=== PATIENT | female | born 1975 | race Caucasian/White ===

== ENCOUNTER 2021-07-22 13:44 | Inpatient (IN) | payer OTHER ==
[2021-07-22 17:04] VITALS: BMI 21.1
[2021-07-22] MEDS ORDERED: BISMUTH SUBSALICYLATE 524 MG/30 ML PO PRN (17:09)
[2021-07-22] MEDS ORDERED: ACETAMINOPHEN 325 MG TABLET (FP) PO PRN ×2 (17:09)
[2021-07-22] MEDS ORDERED: diazePAM 5 MG TABLET PO PRN (17:09)
[2021-07-22] MEDS ORDERED: MAG HYDROX/AL HYDROX/SIMETH 30 ML UNIT-DOSE CUP PO PRN (17:09)
[2021-07-22] MEDS ORDERED: MAGNESIUM HYDROX 2400MG/30ML ORAL SUSPENSION 30 ML CUP PO PRN (17:09)
[2021-07-22] MEDS ORDERED: IBUPROFEN 400 MG TABLET (FP) PO PRN (17:09)
[2021-07-22] MEDS ORDERED: MAGNESIUM CITRATE 300 ML BOTTLE PO PRN (17:09)
[2021-07-22] MEDS ORDERED: ONDANSETRON *ODT* 4 MG TABLET SL PRN (17:09)
[2021-07-22] MEDS ORDERED: MENTHOL/PHENOL 1 EACH UD MM PRN (17:09)
[2021-07-22] MEDS: METHOCARBAMOL 500 MG TABLET PO PRN (18:45)
[2021-07-22] MEDS: hydrOXYzine PAMOATE 25 MG CAPSULE (FP) PO SCH ×2 (18:45→22:21)
[2021-07-22] MEDS: diazePAM 5 MG TABLET PO SCH ×2 (18:46→22:22)
[2021-07-22] MEDS: NICOTINE 21 MG/24 HOURS TOPICAL PATCH TD SCH (18:54)
[2021-07-22] MEDS ORDERED: MELATONIN 5 MG TABLETS PO SCH (22:00)
[2021-07-22] MEDS: THIAMINE HCL 100 MG TABLET (FP) PO SCH (22:21)
[2021-07-23] MEDS: diazePAM 5 MG TABLET PO SCH ×4 (06:27→22:21)
[2021-07-23] MEDS: hydrOXYzine PAMOATE 25 MG CAPSULE (FP) PO SCH ×2 (06:28→11:09)
[2021-07-23] MEDS: METHOCARBAMOL 500 MG TABLET PO PRN (06:28)
[2021-07-23 08:10] LABS: HEMATOCRIT 31.4 % (32.4-45.2); HEMOGLOBIN 10.7 GM/dL (10.7-15.3); MCH 30.2 pg (25.7-33.7); MCHC 34.2 g/dl (32.0-36.0); MEAN CELL VOLUME 88.3 fl (80-96); MEAN PLT VOLUME 7.8 fl (7.5-11.1); PLATELET COUNT 286 10^3/uL (134-434); RBC 3.55 M/mm3 (3.60-5.2); RDW 12.8 % (11.6-15.6); WHITE BLOOD COUNT 6.9 K/mm3 (4.0-10.0)
[2021-07-23] MEDS ORDERED: CARISOPRODOL 350 MG PO PRN (08:17)
[2021-07-23 08:27] LABS: ALBUMIN 2.8 g/dl (3.4-5.0); BLOOD UREA NITROGEN 10.8 mg/dL (7-18); CALCIUM 8.7 mg/dL (8.5-10.1)
[2021-07-23 08:31] LABS: CREATININE 0.7 mg/dL (0.55-1.3)
[2021-07-23 08:32] LABS: TOT PROT 6.3 g/dl (6.4-8.2)
[2021-07-23 08:33] LABS: BILIRUBIN,TOTAL 0.6 mg/dL (0.2-1)
[2021-07-23] MEDS: LEVOTHYROXINE NA 112 MCG TABLET (FP) PO SCH (09:25)
[2021-07-23] MEDS: NICOTINE 21 MG/24 HOURS TOPICAL PATCH TD SCH (11:09)
[2021-07-23] MEDS ORDERED: FLU VACC QS2021-22(6MOS UP)/PF 60 MCG/0.5 ML SYRINGE IM ONE (12:00)
[2021-07-23] MEDS ORDERED: POTASSIUM CHLORIDE TABS 20 MEQ TABLET.ER (FP) PO ONE (12:45)
[2021-07-23] MEDS ORDERED: cloNIDine HCL 0.1 MG TABLET PO PRN (13:05)
[2021-07-23] MEDS ORDERED: methaDONE HCL 10 MG TABLET (FOR DETOX USE ONLY) PO ONE (13:15)
[2021-07-23] MEDS ORDERED: MASKS NR ONE (14:09)
[2021-07-23] MEDS: NICOTINE 10 MG CARTRIDGE (INHALER) IH PRN (16:31)
[2021-07-23] MEDS ORDERED: MIRTAZAPINE 15 MG TABLET (FP) ONE (21:17)
[2021-07-23] MEDS: THIAMINE HCL 100 MG TABLET (FP) PO SCH (22:20)
[2021-07-23] MEDS: MIRTAZAPINE 30 MG TABLET PO SCH (22:20)
[2021-07-24] MEDS: diazePAM 5 MG TABLET PO SCH ×3 (06:28→22:15)
[2021-07-24] MEDS: LEVOTHYROXINE NA 112 MCG TABLET (FP) PO SCH (06:28)
[2021-07-24] MEDS ORDERED: methaDONE HCL 10 MG TABLET (FOR DETOX USE ONLY) ONE (08:56)
[2021-07-24] MEDS: NICOTINE 21 MG/24 HOURS TOPICAL PATCH TD SCH (10:23)
[2021-07-24] MEDS: SERTRALINE HCL 50 MG TABLET (FP) PO SCH (10:24)
[2021-07-24] MEDS: NICOTINE 10 MG CARTRIDGE (INHALER) IH PRN (16:05)
[2021-07-24] MEDS ORDERED: MIRTAZAPINE 15 MG TABLET (FP) ONE (21:46)
[2021-07-24] MEDS: THIAMINE HCL 100 MG TABLET (FP) PO SCH (22:17)
[2021-07-24] MEDS: MIRTAZAPINE 30 MG TABLET PO SCH (22:18)
[2021-07-25] MEDS: diazePAM 5 MG TABLET PO SCH ×2 (06:17→17:43)
[2021-07-25] MEDS: LEVOTHYROXINE NA 112 MCG TABLET (FP) PO SCH (06:18)
[2021-07-25] MEDS ORDERED: methaDONE HCL 10 MG TABLET (FOR DETOX USE ONLY) PO ONE (10:00)
[2021-07-25] MEDS: NICOTINE 21 MG/24 HOURS TOPICAL PATCH TD SCH (10:20)
[2021-07-25] MEDS: hydrOXYzine PAMOATE 25 MG CAPSULE (FP) PO PRN (10:21)
[2021-07-25] MEDS: METHOCARBAMOL 500 MG TABLET PO PRN (10:21)
[2021-07-25] MEDS: SERTRALINE HCL 50 MG TABLET (FP) PO SCH (10:21)
[2021-07-25] MEDS: NICOTINE 10 MG CARTRIDGE (INHALER) IH PRN ×2 (10:58→22:22)
[2021-07-25] MEDS ORDERED: MIRTAZAPINE 15 MG TABLET (FP) ONE (21:07)
[2021-07-25] MEDS: THIAMINE HCL 100 MG TABLET (FP) PO SCH (22:22)
[2021-07-25] MEDS: MIRTAZAPINE 30 MG TABLET PO SCH (22:22)
[2021-07-26] MEDS ORDERED: diazePAM 5 MG TABLET PO ONE (06:00)
[2021-07-26] MEDS: LEVOTHYROXINE NA 112 MCG TABLET (FP) PO SCH (06:00)
[2021-07-26] MEDS ORDERED: methaDONE HCL 10 MG TABLET (FOR DETOX USE ONLY) ONE (09:09)
[2021-07-26] MEDS: SERTRALINE HCL 50 MG TABLET (FP) PO SCH (10:36)
[2021-07-26] MEDS: NICOTINE 21 MG/24 HOURS TOPICAL PATCH TD SCH (10:38)
[2021-07-26] MEDS ORDERED: MIRTAZAPINE 15 MG TABLET (FP) ONE (21:01)
[2021-07-26] MEDS: NICOTINE 10 MG CARTRIDGE (INHALER) IH PRN (22:16)
[2021-07-26] MEDS: THIAMINE HCL 100 MG TABLET (FP) PO SCH (22:16)
[2021-07-26] MEDS: MIRTAZAPINE 30 MG TABLET PO SCH (22:16)
[2021-07-27] MEDS: LEVOTHYROXINE NA 112 MCG TABLET (FP) PO SCH (06:23)
[2021-07-27] MEDS ORDERED: methaDONE HCL 10 MG TABLET (FOR DETOX USE ONLY) PO ONE (10:00)
[2021-07-27] MEDS: SERTRALINE HCL 50 MG TABLET (FP) PO SCH (10:29)
[2021-07-27] MEDS: NICOTINE 21 MG/24 HOURS TOPICAL PATCH TD SCH (10:30)
[2021-07-27] MEDS: hydrOXYzine PAMOATE 25 MG CAPSULE (FP) PO PRN ×2 (10:31→22:23)
[2021-07-27] MEDS: diazePAM 5 MG TABLET PO PRN ×2 (12:42→22:23)
[2021-07-27] MEDS ORDERED: MIRTAZAPINE 15 MG TABLET (FP) ONE (21:38)
[2021-07-27] MEDS: MIRTAZAPINE 30 MG TABLET PO SCH (22:21)
[2021-07-27] MEDS: THIAMINE HCL 100 MG TABLET (FP) PO SCH (22:23)
[2021-07-28] MEDS: LEVOTHYROXINE NA 112 MCG TABLET (FP) PO SCH (07:24)
[2021-07-28] MEDS: NICOTINE 10 MG CARTRIDGE (INHALER) IH PRN (10:31)
[2021-07-28] MEDS: NICOTINE 21 MG/24 HOURS TOPICAL PATCH TD SCH (10:32)
[2021-07-28] MEDS: SERTRALINE HCL 50 MG TABLET (FP) PO SCH (10:32)
[2021-07-28] MEDS: diazePAM 5 MG TABLET PO PRN (10:33)
[2021-07-28 13:19] VITALS: BP 107/67; PULSE 59; TEMP 96.8
== END 2021-07-28 15:11 | disposition other institution (70) | DRG 773 ==
LOC: YASAS 13:44 → Y3N 17:59
PROVIDERS: ADMIT Allergy & Immunology; ATTEND Allergy & Immunology
PROC: HZ2ZZZZ Detoxification Services for Substance Abuse Treatment (ICD-10-PCS; principal; 2021-07-22)
DX: F11.23 Opioid dependence with withdrawal (principal); F13.20 Sedative, hypnotic or anxiolytic dependence, uncomplicated; F17.210 Nicotine dependence, cigarettes, uncomplicated; F41.1 Generalized anxiety disorder; F32.9 Major depressive disorder, single episode, unspecified; F60.3 Borderline personality disorder; E03.9 Hypothyroidism, unspecified; G47.00 Insomnia, unspecified; M32.9 Systemic lupus erythematosus, unspecified; Z91.410 Personal history of adult physical and sexual abuse; Z56.0 Unemployment, unspecified; Z59.02 Unsheltered homelessness; Z88.2 Allergy status to sulfonamides
CPT/HCPCS: 36415; 80053; 81025; 84132; 85027; 86780; C9803; U0003; U0005

== ENCOUNTER 2021-07-28 15:31 | Inpatient (IN) | payer OTHER ==
[2021-07-28] MEDS ORDERED: MAGNESIUM CITRATE 300 ML BOTTLE PO PRN (16:02)
[2021-07-28] MEDS ORDERED: P-EPHED 60MG/TRIPROLIDI 2.5MG TABLET PO PRN (16:02)
[2021-07-28] MEDS ORDERED: MAGNESIUM HYDROX 2400MG/30ML ORAL SUSPENSION 30 ML CUP PO PRN (16:02)
[2021-07-28] MEDS ORDERED: MENTHOL/PHENOL 1 EACH UD MM PRN (16:02)
[2021-07-28] MEDS ORDERED: guaiFENesin 200 MG/10 ML 10 ML UNIT-DOSE CUPS PO PRN (16:02)
[2021-07-28] MEDS ORDERED: ACETAMINOPHEN 325 MG TABLET (FP) PO PRN (16:02)
[2021-07-28] MEDS ORDERED: LOPERAMIDE HCL 2 MG CAPSULE PO PRN (16:02)
[2021-07-28] MEDS ORDERED: IBUPROFEN 400 MG TABLET (FP) PO PRN (16:02)
[2021-07-28] MEDS ORDERED: MAG HYDROX/AL HYDROX/SIMETH 30 ML UNIT-DOSE CUP PO PRN (16:02)
[2021-07-28] MEDS: hydrOXYzine PAMOATE 25 MG CAPSULE (FP) PO PRN ×2 (18:05→22:55)
[2021-07-28] MEDS: THIAMINE HCL 100 MG TABLET (FP) PO SCH (21:04)
[2021-07-28] MEDS: MELATONIN 5 MG TABLETS PO SCH (21:04)
[2021-07-29] MEDS ORDERED: PT OWN MED DRAWER 7, Y5N ONE (03:24)
[2021-07-29] MEDS: LEVOTHYROXINE NA 112 MCG TABLET (FP) PO SCH (07:03)
[2021-07-29] MEDS: NICOTINE 7 MG/24 HOURS TOPICAL PATCH TD SCH (09:38)
[2021-07-29] MEDS: PRENATAL VITAMINS W/ FOLIC ACID TABLET (FP) PO SCH (09:38)
[2021-07-29] MEDS: hydrOXYzine PAMOATE 25 MG CAPSULE (FP) PO PRN ×3 (09:38→18:58)
[2021-07-29] MEDS: SERTRALINE HCL 50 MG TABLET (FP) PO SCH (13:18)
[2021-07-29] MEDS: ONDANSETRON *ODT* 4 MG TABLET SL PRN (18:59)
[2021-07-29] MEDS ORDERED: cloNIDine HCL 0.1 MG TABLET PO PRN (19:20)
[2021-07-29] MEDS ORDERED: BUPRENORPHINE/NALOXONE 4 MG/1 MG FILM PACKET SL ONE (19:22)
[2021-07-29] MEDS: MIRTAZAPINE 30 MG TABLET PO SCH (22:00)
[2021-07-29] MEDS: THIAMINE HCL 100 MG TABLET (FP) PO SCH (22:00)
[2021-07-29] MEDS: MELATONIN 5 MG TABLETS PO SCH (22:00)
[2021-07-30] MEDS: LEVOTHYROXINE NA 112 MCG TABLET (FP) PO SCH (06:29)
[2021-07-30] MEDS: ONDANSETRON *ODT* 4 MG TABLET SL PRN (09:56)
[2021-07-30] MEDS ORDERED: BUPRENORPHINE/NALOXONE 2 MG/0.5 MG FILM PACKET SL SCH (10:15)
[2021-07-30] MEDS: NICOTINE 7 MG/24 HOURS TOPICAL PATCH TD SCH (10:44)
[2021-07-30] MEDS: PRENATAL VITAMINS W/ FOLIC ACID TABLET (FP) PO SCH (10:44)
[2021-07-30] MEDS: SERTRALINE HCL 50 MG TABLET (FP) PO SCH (10:45)
[2021-07-30] MEDS: hydrOXYzine PAMOATE 25 MG CAPSULE (FP) PO PRN ×2 (10:45→21:09)
[2021-07-30] MEDS: NICOTINE 10 MG CARTRIDGE (INHALER) IH PRN (13:43)
[2021-07-30] MEDS ORDERED: BUPRENORPHINE/NALOXONE 2 MG/0.5 MG FILM PACKET SL ONE (18:00)
[2021-07-30] MEDS: MIRTAZAPINE 30 MG TABLET PO SCH (21:08)
[2021-07-30] MEDS: THIAMINE HCL 100 MG TABLET (FP) PO SCH (21:08)
[2021-07-30] MEDS: MELATONIN 5 MG TABLETS PO SCH (21:08)
[2021-07-31] MEDS: LEVOTHYROXINE NA 112 MCG TABLET (FP) PO SCH (07:48)
[2021-07-31] MEDS: PRENATAL VITAMINS W/ FOLIC ACID TABLET (FP) PO SCH (10:39)
[2021-07-31] MEDS: BUPRENORPHINE/NALOXONE 8 MG/2 MG FILM PACKET SL SCH ×2 (10:39→17:27)
[2021-07-31] MEDS: NICOTINE 7 MG/24 HOURS TOPICAL PATCH TD SCH (10:39)
[2021-07-31] MEDS: SERTRALINE HCL 50 MG TABLET (FP) PO SCH (10:40)
[2021-07-31] MEDS: hydrOXYzine PAMOATE 25 MG CAPSULE (FP) PO PRN ×2 (10:40→21:30)
[2021-07-31] MEDS: ONDANSETRON *ODT* 4 MG TABLET SL PRN (10:41)
[2021-07-31] MEDS: MELATONIN 5 MG TABLETS PO SCH (21:30)
[2021-07-31] MEDS: MIRTAZAPINE 30 MG TABLET PO SCH (21:30)
[2021-07-31] MEDS: NICOTINE 10 MG CARTRIDGE (INHALER) IH PRN (21:31)
[2021-07-31] MEDS: THIAMINE HCL 100 MG TABLET (FP) PO SCH (21:32)
[2021-08-01] MEDS: LEVOTHYROXINE NA 112 MCG TABLET (FP) PO SCH (07:11)
[2021-08-01] MEDS: PRENATAL VITAMINS W/ FOLIC ACID TABLET (FP) PO SCH (10:23)
[2021-08-01] MEDS: NICOTINE 7 MG/24 HOURS TOPICAL PATCH TD SCH (10:24)
[2021-08-01] MEDS: BUPRENORPHINE/NALOXONE 8 MG/2 MG FILM PACKET SL SCH ×2 (10:24→19:17)
[2021-08-01] MEDS: hydrOXYzine PAMOATE 25 MG CAPSULE (FP) PO PRN ×2 (10:25→22:02)
[2021-08-01] MEDS: SERTRALINE HCL 50 MG TABLET (FP) PO SCH (10:25)
[2021-08-01] MEDS: MELATONIN 5 MG TABLETS PO SCH (22:01)
[2021-08-01] MEDS: MIRTAZAPINE 30 MG TABLET PO SCH (22:01)
[2021-08-01] MEDS: THIAMINE HCL 100 MG TABLET (FP) PO SCH (22:01)
[2021-08-01] MEDS: NICOTINE 10 MG CARTRIDGE (INHALER) IH PRN (22:02)
[2021-08-02] MEDS: LEVOTHYROXINE NA 112 MCG TABLET (FP) PO SCH (07:48)
[2021-08-02] MEDS: PRENATAL VITAMINS W/ FOLIC ACID TABLET (FP) PO SCH (10:37)
[2021-08-02] MEDS: NICOTINE 7 MG/24 HOURS TOPICAL PATCH TD SCH (10:37)
[2021-08-02] MEDS: SERTRALINE HCL 50 MG TABLET (FP) PO SCH (10:37)
[2021-08-02] MEDS: BUPRENORPHINE/NALOXONE 8 MG/2 MG FILM PACKET SL SCH ×2 (10:37→18:20)
[2021-08-02] MEDS: hydrOXYzine PAMOATE 25 MG CAPSULE (FP) PO PRN ×2 (10:38→22:08)
[2021-08-02] MEDS: NICOTINE 10 MG CARTRIDGE (INHALER) IH PRN (22:07)
[2021-08-02] MEDS: MELATONIN 5 MG TABLETS PO SCH (22:08)
[2021-08-02] MEDS: MIRTAZAPINE 30 MG TABLET PO SCH (22:08)
[2021-08-02] MEDS: THIAMINE HCL 100 MG TABLET (FP) PO SCH (22:08)
[2021-08-03] MEDS: LEVOTHYROXINE NA 112 MCG TABLET (FP) PO SCH (06:52)
[2021-08-03] MEDS: SERTRALINE HCL 50 MG TABLET (FP) PO SCH (10:50)
[2021-08-03] MEDS: BUPRENORPHINE/NALOXONE 8 MG/2 MG FILM PACKET SL SCH ×2 (10:50→17:59)
[2021-08-03] MEDS: hydrOXYzine PAMOATE 25 MG CAPSULE (FP) PO PRN ×2 (10:50→21:17)
[2021-08-03] MEDS: PRENATAL VITAMINS W/ FOLIC ACID TABLET (FP) PO SCH (10:50)
[2021-08-03] MEDS: NICOTINE 7 MG/24 HOURS TOPICAL PATCH TD SCH (10:50)
[2021-08-03] MEDS: THIAMINE HCL 100 MG TABLET (FP) PO SCH (21:17)
[2021-08-03] MEDS: MELATONIN 5 MG TABLETS PO SCH (21:17)
[2021-08-03] MEDS: MIRTAZAPINE 30 MG TABLET PO SCH (21:17)
[2021-08-04] MEDS ORDERED: PT OWN MED DRAWER 7, Y5N ONE (02:50)
[2021-08-04] MEDS: PRENATAL VITAMINS W/ FOLIC ACID TABLET (FP) PO SCH (10:46)
[2021-08-04] MEDS: NICOTINE 7 MG/24 HOURS TOPICAL PATCH TD SCH (10:46)
[2021-08-04] MEDS: SERTRALINE HCL 50 MG TABLET (FP) PO SCH (10:47)
[2021-08-04] MEDS: LEVOTHYROXINE NA 112 MCG TABLET (FP) PO SCH (10:47)
[2021-08-04] MEDS: BUPRENORPHINE/NALOXONE 8 MG/2 MG FILM PACKET SL SCH ×2 (10:47→17:40)
[2021-08-04] MEDS: hydrOXYzine PAMOATE 25 MG CAPSULE (FP) PO PRN ×2 (10:48→21:13)
[2021-08-04] MEDS: MELATONIN 5 MG TABLETS PO SCH (21:12)
[2021-08-04] MEDS: THIAMINE HCL 100 MG TABLET (FP) PO SCH (21:12)
[2021-08-04] MEDS: MIRTAZAPINE 30 MG TABLET PO SCH (21:12)
[2021-08-04] MEDS: NICOTINE 10 MG CARTRIDGE (INHALER) IH PRN (21:13)
[2021-08-05] MEDS: LEVOTHYROXINE NA 112 MCG TABLET (FP) PO SCH (06:43)
[2021-08-05] MEDS: hydrOXYzine PAMOATE 25 MG CAPSULE (FP) PO PRN ×3 (09:37→21:32)
[2021-08-05] MEDS: SERTRALINE HCL 50 MG TABLET (FP) PO SCH (09:37)
[2021-08-05] MEDS: PRENATAL VITAMINS W/ FOLIC ACID TABLET (FP) PO SCH (09:38)
[2021-08-05] MEDS: NICOTINE 7 MG/24 HOURS TOPICAL PATCH TD SCH (09:38)
[2021-08-05] MEDS: BUPRENORPHINE/NALOXONE 8 MG/2 MG FILM PACKET SL SCH ×2 (10:58→18:06)
[2021-08-05] MEDS: MELATONIN 5 MG TABLETS PO SCH (21:32)
[2021-08-05] MEDS: MIRTAZAPINE 30 MG TABLET PO SCH (21:32)
[2021-08-05] MEDS: THIAMINE HCL 100 MG TABLET (FP) PO SCH (21:32)
[2021-08-06] MEDS ORDERED: PT OWN MED DRAWER 7, Y5N ONE (03:16)
[2021-08-06] MEDS: LEVOTHYROXINE NA 112 MCG TABLET (FP) PO SCH (06:47)
[2021-08-06] MEDS: NICOTINE 7 MG/24 HOURS TOPICAL PATCH TD SCH (10:42)
[2021-08-06] MEDS: hydrOXYzine PAMOATE 25 MG CAPSULE (FP) PO PRN ×2 (10:42→21:14)
[2021-08-06] MEDS: PRENATAL VITAMINS W/ FOLIC ACID TABLET (FP) PO SCH (10:42)
[2021-08-06] MEDS: BUPRENORPHINE/NALOXONE 8 MG/2 MG FILM PACKET SL SCH ×2 (10:42→18:05)
[2021-08-06] MEDS: SERTRALINE HCL 50 MG TABLET (FP) PO SCH (10:42)
[2021-08-06] MEDS: NICOTINE 10 MG CARTRIDGE (INHALER) IH PRN (21:14)
[2021-08-06] MEDS: THIAMINE HCL 100 MG TABLET (FP) PO SCH (21:14)
[2021-08-06] MEDS: MELATONIN 5 MG TABLETS PO SCH (21:14)
[2021-08-06] MEDS: MIRTAZAPINE 30 MG TABLET PO SCH (21:14)
[2021-08-07] MEDS: LEVOTHYROXINE NA 112 MCG TABLET (FP) PO SCH (06:43)
[2021-08-07] MEDS: BUPRENORPHINE/NALOXONE 8 MG/2 MG FILM PACKET SL SCH ×2 (10:23→18:13)
[2021-08-07] MEDS: SERTRALINE HCL 50 MG TABLET (FP) PO SCH (10:23)
[2021-08-07] MEDS: NICOTINE 7 MG/24 HOURS TOPICAL PATCH TD SCH (10:23)
[2021-08-07] MEDS: PRENATAL VITAMINS W/ FOLIC ACID TABLET (FP) PO SCH (10:23)
[2021-08-07] MEDS: hydrOXYzine PAMOATE 25 MG CAPSULE (FP) PO PRN ×2 (10:24→21:20)
[2021-08-07] MEDS: MIRTAZAPINE 30 MG TABLET PO SCH (21:20)
[2021-08-07] MEDS: MELATONIN 5 MG TABLETS PO SCH (21:20)
[2021-08-07] MEDS: THIAMINE HCL 100 MG TABLET (FP) PO SCH (21:20)
[2021-08-08] MEDS: LEVOTHYROXINE NA 112 MCG TABLET (FP) PO SCH (07:05)
[2021-08-08] MEDS: NICOTINE 7 MG/24 HOURS TOPICAL PATCH TD SCH (10:24)
[2021-08-08] MEDS: SERTRALINE HCL 50 MG TABLET (FP) PO SCH (10:24)
[2021-08-08] MEDS: BUPRENORPHINE/NALOXONE 8 MG/2 MG FILM PACKET SL SCH ×2 (10:24→17:58)
[2021-08-08] MEDS: hydrOXYzine PAMOATE 25 MG CAPSULE (FP) PO PRN ×2 (10:24→21:58)
[2021-08-08] MEDS: PRENATAL VITAMINS W/ FOLIC ACID TABLET (FP) PO SCH (10:24)
[2021-08-08] MEDS: MIRTAZAPINE 30 MG TABLET PO SCH (21:58)
[2021-08-08] MEDS: MELATONIN 5 MG TABLETS PO SCH (21:59)
[2021-08-08] MEDS: THIAMINE HCL 100 MG TABLET (FP) PO SCH (21:59)
[2021-08-09] MEDS: LEVOTHYROXINE NA 112 MCG TABLET (FP) PO SCH ×2 (06:46→10:28)
[2021-08-09] MEDS: SERTRALINE HCL 50 MG TABLET (FP) PO SCH (10:28)
[2021-08-09] MEDS: PRENATAL VITAMINS W/ FOLIC ACID TABLET (FP) PO SCH (10:28)
[2021-08-09] MEDS: hydrOXYzine PAMOATE 25 MG CAPSULE (FP) PO PRN ×2 (10:28→21:53)
[2021-08-09] MEDS: BUPRENORPHINE/NALOXONE 8 MG/2 MG FILM PACKET SL SCH ×2 (10:29→18:16)
[2021-08-09] MEDS: NICOTINE 7 MG/24 HOURS TOPICAL PATCH TD SCH (10:30)
[2021-08-09] MEDS: MELATONIN 5 MG TABLETS PO SCH (21:53)
[2021-08-09] MEDS: THIAMINE HCL 100 MG TABLET (FP) PO SCH (21:53)
[2021-08-09] MEDS: MIRTAZAPINE 30 MG TABLET PO SCH (21:53)
[2021-08-09] MEDS: NICOTINE 10 MG CARTRIDGE (INHALER) IH PRN (21:54)
[2021-08-10] MEDS: LEVOTHYROXINE NA 112 MCG TABLET (FP) PO SCH ×2 (06:38→10:34)
[2021-08-10] MEDS: BUPRENORPHINE/NALOXONE 8 MG/2 MG FILM PACKET SL SCH ×2 (10:34→18:08)
[2021-08-10] MEDS: SERTRALINE HCL 50 MG TABLET (FP) PO SCH (10:34)
[2021-08-10] MEDS: PRENATAL VITAMINS W/ FOLIC ACID TABLET (FP) PO SCH (10:34)
[2021-08-10] MEDS: hydrOXYzine PAMOATE 25 MG CAPSULE (FP) PO PRN ×2 (10:34→21:18)
[2021-08-10] MEDS: NICOTINE 7 MG/24 HOURS TOPICAL PATCH TD SCH (10:35)
[2021-08-10] MEDS: MELATONIN 5 MG TABLETS PO SCH (21:18)
[2021-08-10] MEDS: THIAMINE HCL 100 MG TABLET (FP) PO SCH (21:18)
[2021-08-10] MEDS: MIRTAZAPINE 30 MG TABLET PO SCH (21:18)
[2021-08-11] MEDS ORDERED: PT OWN MED DRAWER 7, Y5N ONE ×3 (03:24→06:51)
[2021-08-11] MEDS: hydrOXYzine PAMOATE 25 MG CAPSULE (FP) PO PRN ×2 (06:52→21:02)
[2021-08-11] MEDS: LEVOTHYROXINE NA 112 MCG TABLET (FP) PO SCH (06:53)
[2021-08-11 07:13] VITALS: TEMP 99.1
[2021-08-11] MEDS: PRENATAL VITAMINS W/ FOLIC ACID TABLET (FP) PO SCH (10:02)
[2021-08-11] MEDS: NICOTINE 7 MG/24 HOURS TOPICAL PATCH TD SCH (10:03)
[2021-08-11] MEDS: BUPRENORPHINE/NALOXONE 8 MG/2 MG FILM PACKET SL SCH ×2 (10:03→17:50)
[2021-08-11] MEDS: SERTRALINE HCL 50 MG TABLET (FP) PO SCH (10:03)
[2021-08-11] MEDS: MELATONIN 5 MG TABLETS PO SCH (21:02)
[2021-08-11] MEDS: MIRTAZAPINE 30 MG TABLET PO SCH (21:02)
[2021-08-11] MEDS: THIAMINE HCL 100 MG TABLET (FP) PO SCH (21:02)
[2021-08-12] MEDS: LEVOTHYROXINE NA 112 MCG TABLET (FP) PO SCH (06:59)
[2021-08-12] MEDS: NICOTINE 7 MG/24 HOURS TOPICAL PATCH TD SCH (10:42)
[2021-08-12] MEDS: PRENATAL VITAMINS W/ FOLIC ACID TABLET (FP) PO SCH (10:42)
[2021-08-12] MEDS: hydrOXYzine PAMOATE 25 MG CAPSULE (FP) PO PRN ×3 (10:43→21:10)
[2021-08-12] MEDS: SERTRALINE HCL 50 MG TABLET (FP) PO SCH (10:43)
[2021-08-12] MEDS: BUPRENORPHINE/NALOXONE 8 MG/2 MG FILM PACKET SL SCH ×2 (10:43→17:40)
[2021-08-12 16:32] VITALS: BP 110/70; PULSE 69
[2021-08-12] MEDS: THIAMINE HCL 100 MG TABLET (FP) PO SCH (21:10)
[2021-08-12] MEDS: MIRTAZAPINE 30 MG TABLET PO SCH (21:10)
[2021-08-12] MEDS: MELATONIN 5 MG TABLETS PO SCH (21:10)
[2021-08-13] MEDS ORDERED: PT OWN MED DRAWER 7, Y5N ONE (03:12)
[2021-08-13] MEDS: LEVOTHYROXINE NA 112 MCG TABLET (FP) PO SCH ×2 (06:34→10:33)
[2021-08-13] MEDS: NICOTINE 7 MG/24 HOURS TOPICAL PATCH TD SCH (10:31)
[2021-08-13] MEDS: PRENATAL VITAMINS W/ FOLIC ACID TABLET (FP) PO SCH (10:31)
[2021-08-13] MEDS: SERTRALINE HCL 50 MG TABLET (FP) PO SCH (10:32)
[2021-08-13] MEDS: hydrOXYzine PAMOATE 25 MG CAPSULE (FP) PO PRN (10:32)
[2021-08-13] MEDS: BUPRENORPHINE/NALOXONE 8 MG/2 MG FILM PACKET SL SCH (10:33)
[2021-08-13] MEDS: NICOTINE 10 MG CARTRIDGE (INHALER) IH PRN (10:34)
== END 2021-08-13 11:10 | disposition home or self-care (01) | DRG 772 ==
LOC: YASAS 15:31 → Y5N 15:32
PROVIDERS: ADMIT Allergy & Immunology; ATTEND Allergy & Immunology
PROC: HZ42ZZZ Group Counseling for Substance Abuse Treatment, Cognitive-Behavioral (ICD-10-PCS; principal; 2021-07-28)
DX: F13.20 Sedative, hypnotic or anxiolytic dependence, uncomplicated (principal); F11.20 Opioid dependence, uncomplicated; F17.210 Nicotine dependence, cigarettes, uncomplicated; F41.9 Anxiety disorder, unspecified; F19.24 Other psychoactive substance dependence with psychoactive substance-induced mood disorder; F19.282 Other psychoactive substance dependence with psychoactive substance-induced sleep disorder; M32.9 Systemic lupus erythematosus, unspecified; M19.90 Unspecified osteoarthritis, unspecified site
CPT/HCPCS: J0735; Q0162